=== PATIENT | female | born 1960 | race Caucasian/White ===

== ENCOUNTER 2017-09-29 21:51 | Emergency (ER) | payer BC ==
[~2017-09-29] VITALS: Ht 162.6 cm; Wt 91.1 kg
[2017-09-29 22:19] LABS: HEMATOCRIT 38.1 % (36.0-46.0); HEMOGLOBIN 12.5 G/DL (11.9-15.5); MCH 29.9 PG (29.0-34.0); MCHC 32.8 G/DL (30.0-36.0); MCV 91.1 FL (83-99); PLATELET COUNT 364 K/uL (156-360); RBC DIS.WIDTH-CV 13.8 % (11.8-14.6); RBC DIS.WIDTH-SD 46.5 % (39-53); RED BLOOD COUNT 4.18 M/uL (3.80-5.20); WHITE BLOOD COUNT 9.2 K/uL (4.1-10.2)
[2017-09-29 22:34] LABS: CHLORIDE 107 mEq/L (99-109); POTASSIUM 3.5 mEq/L (3.7-5.4); SODIUM 141 mEq/L (136-147)
[2017-09-29 22:35] LABS: GLUCOSE 70 mg/dL (70-99)
[2017-09-29 22:39] LABS: CREATININE 0.8 mg/dL (0.6-1.3); GFR ESTIMATE (CALCULATED) > 59 mL/min/
[2017-09-29 22:40] LABS: UREA NITROGEN (BUN) 13 mg/dL (9-23)
[2017-09-29 22:42] LABS: TROP-I INTERPRETATION NEGATIVE; TROPONIN-I < 0.01 ng/mL (0.0-0.30)
[2017-09-29 22:54] LABS: ALBUMIN 4.2 g/dL (3.2-4.8)
[2017-09-29 22:57] LABS: TOTAL PROTEIN 7.3 g/dL (6.4-8.3)
[2017-09-29 22:59] LABS: TOTAL BILIRUBIN 0.2 mg/dL (0.0-1.0)
[2017-09-29 23:00] LABS: ALKALINE PHOSPHATASE 83 IU/L (3-129)
[2017-09-29 23:02] LABS: AST (GOT) 28 IU/L (2-34); DIRECT BILIRUBIN 0.1 mg/dL (0.0-0.3)
[2017-09-29 23:03] LABS: ALT (GPT) 31 IU/L (3-49); CREATINE KINASE 408 IU/L (1-294); LIPASE 53 U/L (1.0-51.0); TOTAL CK 408 IU/L (1-294)
[2017-09-29 23:09] LABS: CK-MB 0.6 ng/mL (0.0-4.9); CKMB RELATIVE INDEX 0.1 (0.0-3.9)
[2017-09-29 23:35] LABS: MAGNESIUM 2.2 mg/dL (1.3-2.7)
[2017-09-29 23:39] LABS: SERUM ETHYL ALCOHOL < 10 mg/dL
[2017-09-30 01:00] LABS: TROP-I INTERPRETATION NEGATIVE; TROPONIN-I < 0.01 ng/mL (0.0-0.30)
[2017-09-30 01:35] VITALS: BP 105/74
== END 2017-09-30 01:38 | disposition home or self-care (01) ==
LOC: EME → EDBD 21:51 → EME 09-30 01:38
PROVIDERS: Emergency Medicine
DX: R55 Syncope and collapse (principal); E86.0 Dehydration; Z87.891 Personal history of nicotine dependence; Z88.5 Allergy status to narcotic agent
CPT/HCPCS: 71046; 80048; 80076; 82550; 82550 91; 82553; 83690; 83735; 84484; 85027; 93005; 99281; 99285; G0480; J2405; J7030